=== PATIENT | female | born 1980 | race Two or more races ===

== ENCOUNTER 2021-05-02 10:35 | Emergency (ER) | payer OTHER, SELFPAY ==
[2021-05-02 10:57] VITALS: BP 118/86; PULSE 72; RESP 18; TEMP 36.9; O2SAT 100
[2021-05-02 11:33] LABS: Basophils Percent Auto 0.2 % (0.2-1.2); Eosinophils Absolute Auto 0.1 K/mm3 (0-0.3); Eosinophils Percent Auto 1.6 % (0-4.4); Immature Granulocyte Absolute 0.01 K/mm3 (0.00-0.031); Immature Granulocyte Percent A 0.2 % (0-0.5); Lymphocytes Absolute Auto 1.65 K/mm3 (0.9-3.2); Lymphocytes Percent Auto 33.8 % (18.3-44.2); Mean Corpuscular HGB Conc 35.1 g/dl (32-36); Mean Corpuscular Hemoglobin 31.1 pg (26-34); Mean Corpuscular Volume 88.5 fl (80-100); Mean Platelet Volume 10.2 fl (7.4-10.4); Monocytes Absolute Auto 0.3 K/mm3 (0.1-0.6); Monocytes Percent Auto 5.3 % (2.6-8.5); Neutrophils Absolute Auto 2.9 K/mm3 (1.3-6.7); Neutrophils Percent Auto 58.9 % (45.5-73.1); Platelet Count Result 259 k/mm3 (150-375); Red Blood Count 4.18 M/mm3 (4.2-5.4); Red Cell Distribution Width 11.9 % (11.5-14.5); White Blood Count 4.9 K/mm3 (4.5-10.0)
[2021-05-02 11:45] LABS: Alanine Aminotransferase 22 U/L (4-35); Albumin Level 4.7 g/dL (3.5-5.1); Alkaline Phosphatase 40 U/L (38-126); Anion Gap 10 mmol/L (8-16); Aspartate Amino Transferase 23 U/L (14-36); Bilirubin,Total 0.4 mg/dL (0.2-1.3); Blood Urea Nitrogen 8 mg/dL (7-17); Calcium 9.7 mg/dL (8.4-10.2); Carbon Dioxide 24 mmol/L (22-30); Chloride 107 mmol/L (98-107); Estimated CRCL calculation 117 ml/min; Estimated Glomerular Filt Rate > 60; Glucose 119 mg/dL (65-110); Potassium 3.9 mmol/L (3.4-5.0); Sodium 141 mmol/L (137-145)
--- NOTE | 2021-05-02 12:52 | ED.GENADULT ---
HPI - General Adult General Chief complaint: Vaginal Bleeding <Amelia Dykes PA-C - Last Filed: 05/02/21 13:00> Stated complaint: vaginal bleeding <Amelia Dykes PA-C - Last Filed: 05/02/21 13:00> Time Seen by Provider: 05/02/21 11:10 <Amelia Dykes PA-C - Last Filed: 05/02/21 13:00> Source: patient <Amelia Dykes PA-C - Last Filed: 05/02/21 13:00> Mode of arrival: ambulatory <Amelia Dykes PA-C - Last Filed: 05/02/21 13:00> History of Present Illness HPI narrative: Patient with hypothyroidism presents with chief complaint of vaginal bleeding intermittently since 03-24-21. Patient reports that she had some vaginal itching and burning a few weeks ago but that stopped a week ago. She denies any vaginal discharge. She denies concern for STDs. Patient states she presented to the emergency department because she missed her appointment with her [employer]ER and they will could not be seen until the . Patient is having light menstrual flow. Patient wants a pill to make the bleeding stop. She states she had this happen 10 years ago and it went away. <Amelia Dykes PA-C - Last Filed: 05/02/21 13:00> Related Data Home medications: Home Medications Medication Instructions Recorded Confirmed cholecalciferol (vitamin D3) 25 50 mcg PO DAILY cap 12/22/20 12/22/20 mcg (1,000 unit) capsule docusate sodium 100 mg capsule 100 mg PO BID cap 12/22/20 12/22/20 ferrous sulfate 325 mg (65 mg 325 mg PO DAILY tablet 12/22/20 12/22/20 iron) tablet levothyroxine 75 mcg tablet 75 mcg PO DAILY tablet 12/22/20 12/22/20 norethindrone 1 mg-ethinyl 1 tablet PO DAILY tablet 12/22/20 12/22/20 estradiol 20 mcg (21)-iron 75 mg (7) tablet <Amelia Dykes PA-C - Last Filed: 05/02/21 13:00> Allergies/adverse reactions: Allergies Allergy/AdvReac Type Severity Reaction Status Date / Time No Known Allergies Allergy Verified 02/02/21 10:51 <Amelia Dykes PA-C - Last Filed: 05/02/21 13:00> Review of Systems Review of Systems: CONSTITUTIONAL: Denies fever, chills, or sweats. EYES: Denies visual changes, redness, or discharge. ENT: Denies rhinorrhea, congestion, sore throat, or otalgia. CARDIOVASCULAR: Denies chest pain, palpitations, or edema. RESPIRATORY: Denies cough or dyspnea. GASTROINTESTINAL: Denies abdominal pain, nausea, vomiting, or diarrhea. GENITOURINARY: Reports vaginal bleeding denies dysuria or hematuria. SKIN: Denies rash or itching. MUSCULOSKELETAL: Denies back pain, joint pain, or myalgia. NEUROLOGIC: Denies headache, numbness, dizziness, or weakness. PSYCHIATRIC: Denies anxiety or depression. <Amelia Dykes PA-C - Last Filed: 05/02/21 13:00> PMFSH Past Medical History Medical History: Medical History Constipation Hypothyroidism (acquired) Iron deficiency Thyroid disorder Vitamin D deficiency <Amelia Dykes PA-C - Last Filed: 05/02/21 13:00> Surgical History Surgical History: Surgical History History of lumbosacral spine surgery due to trauma <Amelia Dykes PA-C - Last Filed: 05/02/21 13:00> Family History Family History: Family History Father Hypertension Mother Diabetes mellitus <YESSY Melendrez Last Filed: 05/02/21 13:00> Social History Social History: Social History Smoking status: Never smoker Alcohol intake: never Substance use: never Substance use type: does not use Gender identity (if verbalized by the patient): Female <Amelia Dykes PA-C - Last Filed: 05/02/21 13:00> Exam Narrative: GENERAL: Well-appearing, well-nourished, and in no acute distress. HEAD: Normocephalic, atraumatic. EYES: PERRLA and EOMI. NECK: Supple. Range of motion intact. CHEST: Clear to aus
[2021-05-02 13:07] LABS: Add Urine Microscopic? YES; Appearance Urine Clear (Clear); Bilirubin Urine Negative (Negative); Blood Urine 3+ (Negative); Color Urine Straw (Yellow); Glucose Urine UA Negative (Negative); Ketones Urine Negative (Negative); Leukocyte Esterase Ur Negative LEU/UL (Negative); Nitrate Urine Negative (Negative); Protein Urine Negative (Negative); RBC Urine >75 /hpf (0-2); Specific Grav Ur 1.006 (1.001-1.035); Urobilinogen Urine Negative mg/dL (<2.0); WBC Urine 0-3 /hpf
[2021-05-02 13:24] VITALS: BP 109/66; PULSE 91; RESP 18; O2SAT 99
== END 2021-05-02 13:27 | disposition home or self-care (01) ==
PROVIDERS: Physician Assistant; Emergency Provider General Practice; PCP Family Medicine
DX: N93.9 Abnormal uterine and vaginal bleeding, unspecified (principal); E03.9 Hypothyroidism, unspecified; E55.9 Vitamin D deficiency, unspecified; E61.1 Iron deficiency
CPT/HCPCS: 36415; 80053; 81001; 84443; 85025; 99284

== ENCOUNTER 2022-01-02 18:29 | Emergency (ER) | payer OTHER, SELFPAY ==
[2022-01-02] VITALS (24 sets, daily range): BP systolic 97–123; BP diastolic 63–82; PULSE 64–87; RESP 12–27; TEMP 36.6–36.7; O2SAT 98–100
[2022-01-02 20:49] LABS: Basophils Percent Auto 0.4 % (0.2-1.2); Eosinophils Absolute Auto 0.1 K/mm3 (0-0.3); Eosinophils Percent Auto 2.4 % (0-4.4); Hematocrit 27.9 % (37.0-47.0); Hemoglobin 8.8 g/dL (12.0-15.0); Immature Granulocyte Absolute 0.01 K/mm3 (0.00-0.031); Immature Granulocyte Percent A 0.2 % (0-0.5); Lymphocytes Absolute Auto 1.81 K/mm3 (0.9-3.2); Lymphocytes Percent Auto 40.3 % (18.3-44.2); Mean Corpuscular HGB Conc 31.5 g/dl (32-36); Mean Corpuscular Hemoglobin 27.6 pg (26-34); Mean Corpuscular Volume 87.5 fl (80-100); Mean Platelet Volume 10.8 fl (7.4-10.4); Monocytes Absolute Auto 0.3 K/mm3 (0.1-0.6); Monocytes Percent Auto 7.3 % (2.6-8.5); Neutrophils Absolute Auto 2.2 K/mm3 (1.3-6.7); Neutrophils Percent Auto 49.4 % (45.5-73.1); Platelet Count Result 307 k/mm3 (150-375); Red Blood Count 3.19 M/mm3 (4.2-5.4); Red Cell Distribution Width 12.3 % (11.5-14.5); White Blood Count 4.5 K/mm3 (4.5-10.0)
[2022-01-02 20:50] LABS: Anion Gap 5 mmol/L (8-16); Blood Urea Nitrogen 11 mg/dL (7-17); Calcium 8.3 mg/dL (8.4-10.2); Carbon Dioxide 26 mmol/L (22-30); Chloride 107 mmol/L (98-107); Estimated Glomerular Filt Rate > 60; Glucose 90 mg/dL (65-110); Potassium 3.7 mmol/L (3.4-5.0); Sodium 138 mmol/L (137-145)
[2022-01-02] MEDS: KETOROLAC 30 MG/ML VIAL (*BKC) IV PUSH (20:59)
[2022-01-02] MEDS: SODIUM CHLORIDE 0.9% IV 1,000 ML 999 ML IV CONT (20:59)
--- NOTE | 2022-01-02 21:39 | ED.GENADULT ---
HPI - General Adult General Chief complaint: Dizziness Stated complaint: dizzy/floaters/numbness Time Seen by Provider: 01/02/22 19:16 History of Present Illness HPI narrative: Patient is a 41-year-old female who presents ER with dizziness beginning 3 to 4 hours ago. Reports is worse with turning her head and associated with nausea. Makes her feel unsteady. She describes nonspecific tingling that is not lateralizing. No focal weakness in arm or leg. Reports she is got mild frontal headache related to this. Has had similar symptoms in the past, she reports it was related to anemia. No dark black stools or gross blood in in stool. She has history of heavy periods. No fevers or chills or sweats. She reports that she is not been on iron because she was told she did not need it anymore. Related Data Home Medications Medication Instructions Recorded Confirmed docusate sodium 100 mg capsule 100 mg PO BID 12/22/20 12/22/20 ferrous sulfate 325 mg (65 mg 325 mg PO DAILY 12/22/20 10/23/21 iron) tablet Allergies Allergy/AdvReac Type Severity Reaction Status Date / Time No Known Allergies Allergy Verified 10/30/21 09:52 Review of Systems Review of Systems: All systems reviewed & are unremarkable except as noted in HPI and below Constitutional: Constitutional: Denies chills, Reports fatigue and Denies fever(s) ENT: Reports dizziness, Denies nasal congestion and Denies sore throat Cardiovascular: Cardiovascular: Denies chest pain, Denies rapid heart rate and Denies radiating jaw, neck or arm pain Respiratory: Respiratory: Denies cough and Denies dyspnea Gastrointestinal: Gastrointestinal: Denies abdominal pain, Reports nausea and Denies vomiting Neurologic: Reports dizziness, Denies syncope, Reports headache(s), Denies focal weakness and Reports numbness PMFSH Past Medical History Medical History Constipation Hypothyroidism (acquired) Iron deficiency Thyroid disorder Vitamin D deficiency Surgical History Surgical History History of lumbosacral spine surgery due to trauma Family History Family History Father Hypertension Mother Diabetes mellitus Social History Social History (Updated 10/30/21 @ 09:54 by Mily Lucero [facility]) Smoking status: Never smoker Alcohol intake: current Alcohol use details: social Substance use: never Substance use type: does not use Additional living arrangements comments: Gender identity (if verbalized by the patient): Female Sexual Orientation (if Verbalized by the Patient): Straight or Heterosexual Exam Narrative: GENERAL: Well-appearing, well-nourished, and in no acute distress. HEAD: Normocephalic, atraumatic. EYES: PERRL and EOMI. ENT: Mucous membranes moist. Right ear cerumen impaction, after debris removed TM normal in appearance. Normal left TM. CHEST: Clear to auscultation. No respiratory distress. HEART: Regular rate and rhythm. Normal peripheral pulses. ABDOMEN: Soft, nontender, nondistended. EXTREMITIES: Normal range of motion. No edema. SKIN: Warm, dry, no rash. NEURO: No focal deficits. Normal [id number] testing. No upper or lower extremity drift. Alert and oriented x3. PSYCH: Normal mood and affect. Course Course Emergency Course: Symptoms resolved after ear irrigation removing earwax. Patient has been hydrated also received meclizine and Toradol. No headache or dizziness. Discussed anemia and recommend restarting iron. Patient verbalized understanding. Vital Signs Vital signs: Vital Signs Temperature 97.9 F 01/02/22 19:10 Pulse Rate 80 01/02/22 19:10 Respiratory Rate 16 01/02/22 19:10 Blood Pressure 118/76 01/02/22 19:10 Pulse Oximetry 100 01/02/22 19:10 Temperature 98.0 F 01/02/22 19:16 Pulse Rate 70 01/02/22 19:16
[2022-01-02] MEDS: MECLIZINE HCL 25 MG TABLET PO (22:06)
== END 2022-01-02 22:14 | disposition home or self-care (01) ==
PROVIDERS: Emergency Provider Emergency Medicine; PCP Family Medicine
DX: R42 Dizziness and giddiness (principal); H61.21 Impacted cerumen, right ear; D64.9 Anemia, unspecified; E03.9 Hypothyroidism, unspecified; E55.9 Vitamin D deficiency, unspecified; E61.1 Iron deficiency
CPT/HCPCS: 36415; 69209; 80048; 85025; 96361; 96374; 99284; A9270; J1885; J7030

== ENCOUNTER 2022-03-28 06:51 | Outpatient (RCR) | payer SELFPAY | END 2022-06-11 09:55 | disposition home or self-care (01) | LOC: ANHDMC 06:51 | PROVIDERS: PCP Family Medicine; Visit Provider Nurse Practitioner Family | DX: R63.5 Abnormal weight gain (principal) | CPT/HCPCS: 99199 ==

== ENCOUNTER 2022-03-30 16:13 | Outpatient (CLI) | payer OTHER, SELFPAY ==
[2022-03-30 18:37] LABS: Hematocrit 38.9 % (37.0-47.0); Hemoglobin 12.9 g/dL (12.0-15.0); Mean Corpuscular HGB Conc 33.2 g/dl (32-36); Mean Corpuscular Hemoglobin 28.9 pg (26-34); Mean Platelet Volume 11.1 fl (7.4-10.4); Platelet Count Result 275 k/mm3 (150-375); Red Blood Count 4.47 M/mm3 (4.2-5.4); Red Cell Distribution Width 14.2 % (11.5-14.5); White Blood Count 5.7 K/mm3 (4.5-10.0)
== END 2022-03-30 16:14 | disposition home or self-care (01) ==
LOC: ANHGOSHLAB 16:15
PROVIDERS: PCP Family Medicine; Visit Provider Nurse Practitioner Family
DX: D50.9 Iron deficiency anemia, unspecified (principal)
CPT/HCPCS: 36415; 82728; 85027

== ENCOUNTER 2022-09-10 13:19 | Outpatient (CLI) | payer OTHER, SELFPAY ==
--- NOTE | ~2022-09-10 | US_ITS ---
US breast LT limited DATE: 09/10/2022 13:41 INDICATION: Left breast lump at 1:00 TECHNIQUE: Real-time and color flow imaging targeted at area of clinical complaint of left breast lum p at 1:00 5 cm from nipple COMPARISON: None FINDINGS: 1:00 5 cm from nipple: Parallel circumscribed sonolucency measuring 3.7 x 2.6 x 4.9 mm, wit hout internal vascularity or posterior shadowing, consistent with simple cyst or other benign process . No sonographic suspicious mass or shadowing is detected in this area. IMPRESSION: BI-RADS Category 2: Benign Recommendation: Consider diagnostic mammography, which may show abnormalities that are not detectable by ultrasound Reviewed, dictated and finalized at [facility]. Reviewed, dictated and finalized at location A. H CHEMIST IMPRESSION: BI-RADS Category 2: Benign Recommendation: Consider diagnostic mammography, which may show abnormalities t hat are not detectable by ultrasound
== END 2022-09-10 13:20 | disposition home or self-care (01) ==
PROVIDERS: PCP Family Medicine; Visit Provider Nurse Practitioner
DX: N63.0 Unspecified lump in unspecified breast (principal)
CPT/HCPCS: 76642

== ENCOUNTER 2022-10-03 13:50 | Outpatient (CLI) | payer OTHER, SELFPAY ==
[2022-10-03 19:23] LABS: Basophils Percent Auto 0.4 % (0.2-1.2); Eosinophils Absolute Auto 0.1 K/mm3 (0-0.3); Eosinophils Percent Auto 1.9 % (0-4.4); Hematocrit 36.9 % (37.0-47.0); Hemoglobin 12.5 g/dL (12.0-15.0); Immature Granulocyte Absolute 0.01 K/mm3 (0.00-0.031); Immature Granulocyte Percent A 0.2 % (0-0.5); Lymphocytes Absolute Auto 1.67 K/mm3 (0.9-3.2); Lymphocytes Percent Auto 35.3 % (18.3-44.2); Mean Corpuscular HGB Conc 33.9 g/dl (32-36); Mean Corpuscular Hemoglobin 30.9 pg (26-34); Mean Corpuscular Volume 91.3 fl (80-100); Mean Platelet Volume 11.6 fl (7.4-10.4); Monocytes Absolute Auto 0.3 K/mm3 (0.1-0.6); Monocytes Percent Auto 6.1 % (2.6-8.5); Neutrophils Absolute Auto 2.7 K/mm3 (1.3-6.7); Neutrophils Percent Auto 56.1 % (45.5-73.1); Platelet Count Result 261 k/mm3 (150-375); Red Blood Count 4.04 M/mm3 (4.2-5.4); Red Cell Distribution Width 12.2 % (11.5-14.5); White Blood Count 4.7 K/mm3 (4.5-10.0)
[2022-10-03 19:55] LABS: Iron 95 ug/dL (37-170)
[2022-10-03 20:07] LABS: Percent Iron Saturation 26 % (20-50)
[2022-10-03 20:33] LABS: Alanine Aminotransferase 24 U/L (6-35); Albumin Level 4.2 g/dL (3.5-5.1); Alkaline Phosphatase 45 U/L (38-126); Anion Gap 5 mmol/L (8-16); Aspartate Amino Transferase 37 U/L (14-36); Bilirubin,Total 0.4 mg/dL (0.2-1.3); Blood Urea Nitrogen 8 mg/dL (7-17); Calcium 8.8 mg/dL (8.4-10.2); Carbon Dioxide 28 mmol/L (22-30); Chloride 106 mmol/L (98-107); Estimated Glomerular Filt Rate > 60; Glucose 81 mg/dL (65-110); Potassium 3.9 mmol/L (3.4-5.0); Sodium 139 mmol/L (137-145)
== END 2022-10-03 13:51 | disposition home or self-care (01) ==
LOC: ANHGOSHLAB 13:52
PROVIDERS: PCP Family Medicine; Visit Provider Family Medicine
DX: D50.9 Iron deficiency anemia, unspecified (principal); E03.9 Hypothyroidism, unspecified; K59.00 Constipation, unspecified
CPT/HCPCS: 36415; 80053; 82728; 83540; 83550; 84443; 85025

== ENCOUNTER 2022-10-15 11:31 | Outpatient (CLI) | payer OTHER, SELFPAY ==
--- NOTE | ~2022-10-15 | MMUS_ITS ---
EXAMINATION: MM diagnostic angei BI w luis, US breast BI complete HISTORY: Palpable breast lump. TECHNIQUE: Additional 3-D tomosynthesis images of the breasts were performed and synthetic 2-D images were generated. CAD analysis was submitted and interpreted. High resolution complete bilateral breas t ultrasound was performed. COMPARISON: None BREAST PARENCHYMAL COMPOSITION: The breasts are heterogeneously dense, which may obscure small masses FINDINGS: MAMMOGRAPHIC FINDINGS: There are no suspicious masses, calcifications or architectural distortion in either breast to sugges t malignancy. ULTRASOUND: Complete bilateral US of all 4 quadrants of the breasts and retroareolar region was reviewed. Right breast: No suspicious solid or cystic masses are identified in the right breast. Left breast ultrasound: At 3:00 near the nipple there is an oval circumscribed hypoechoic mass with i nternal cystic change measuring 1.7 x 1.4 x 0.7 cm. No significant posterior attenuation or internal vascularity. Parallel orientation. IMPRESSION: 1. Complex partially cystic left breast mass at 3:00 near the nipple measuring 1.7 cm. 2. Ultrasound-guided left breast biopsy recommended. BI-RADS category 4, suspicious findings. Reviewed, dictated and finalized at location A. IMPRESSION: 1. Complex partially cystic left breast mass at 3:00 near the nipple measuring 1.7 cm. 2. Ultrasound-guided left breast biopsy recommended. BI-RADS category 4, suspicious findings.
== END 2022-10-15 11:32 | disposition home or self-care (01) ==
LOC: ANHIMG 11:32
PROVIDERS: PCP Family Medicine; Visit Provider Nurse Practitioner
DX: N60.02 Solitary cyst of left breast (principal)
CPT/HCPCS: 76641; 77062; 77066; G0279

== ENCOUNTER 2022-10-24 14:40 | Outpatient (CLI) | payer OTHER, SELFPAY ==
--- NOTE | ~2022-10-24 | XR_ITS ---
EXAMINATION: XR chest 2V Exam Date/Time: 10/24/2022 14:50 CDT HISTORY: R05.3 - Chronic cough Comparison: None available. RESULT: Lines, tubes, and devices: Partially visualized thoracolumbar fusion hardware. A pedicle screw is fr actured. Lungs and pleura: Mild diffuse reticulonodular opacities and cuffing. Cardiomediastinal silhouette: Stable. Other: No acute osseous or upper abdominal finding. IMPRESSION: Thoracolumbar fusion hardware with fractured superior pedicle screw. Pulmonary opacities may represen t mild bronchiolitis, as can be seen with atypical infection, asthma, aspiration, and small airways d isease Reviewed, dictated and finalized at location K. IMPRESSION: Thoracolumbar fusion hardware with fractured superior pedicle screw. Pulmonary opacities may represent mild bronchiolitis, as can be seen with atypical infect ion, asthma, aspiration, and small airways disease
== END 2022-10-24 14:41 | disposition home or self-care (01) ==
PROVIDERS: PCP Family Medicine; Visit Provider Family Medicine
DX: R05.3 Chronic cough (principal); Z98.1 Arthrodesis status
CPT/HCPCS: 71046

== ENCOUNTER 2022-11-08 09:16 | Outpatient (CLI) | payer OTHER, SELFPAY ==
--- NOTE | ~2022-11-08 | MMUS_ITS ---
EXAMINATION: US breast biopsy LT w image, MM post biopsy invasive LT DATE: 11/08/2022 10:43 (accession [id number]), 11/08/2022 10:36 (accession [id number]) INDICATION: Indeterminate mass at the 3:00 location of the left breast Ultrasound-guided core biopsy is requested to evaluate for malignancy. TECHNIQUE AND FINDINGS: The risks and potential benefits of the procedure were discussed with the patient including bleeding and infection. A time out was performed. The skin of the left breast was prepared and draped in usual sterile fashion. 1% lidocaine was used for superficial anesthesia. 1% lidocaine with epinephrine was used for deep anesthesia. A vacuum-assisted biopsy needle was advanced through to the outer edge of the region of interest from an inferolateral approach utilizing sonographic guidance. A total of five tissue core samples were o btained through the lesion. A tissue marker clip was then placed at the biopsy site. Hemostasis was a chieved. A sterile bandage was applied. The patient tolerated procedure well and there was no evidence of immediate complication. The patient was given verbal instructions to return to the Emergency Department in the event of severe breast pa in or rapid breast enlargement. A two view left breast mammogram was obtained to document tissue jr er clip placement. IMPRESSION: 1. Successful ultrasound-guided vacuum-assisted biopsy of left breast mass with tissue marker placeme nt. Reviewed, dictated and finalized at location A. IMPRESSION: 1. Successful ultrasound-guided vacuum-assisted biopsy of left breast mass with tissue marker placement.
== END 2022-11-08 09:17 | disposition home or self-care (01) ==
PROVIDERS: PCP Family Medicine; Visit Provider Nurse Practitioner
DX: N63.20 Unspecified lump in the left breast, unspecified quadrant (principal)
CPT/HCPCS: 19083; 88305; A4648

== ENCOUNTER 2023-07-26 10:46 | Outpatient (CLI) | payer OTHER, SELFPAY ==
--- NOTE | ~2023-07-26 | XR_ITS ---
EXAMINATION: XR thoracolumbar DATE: 07/26/2023 11:23 INDICATION: Dorsalgia. TECHNIQUE: 3 views of the thoracolumbar spine including flexion and extension standing views were obt ained. COMPARISON: Chest 2 views 10/24/2022 FINDINGS: There is 6 degrees levocurvature of thoracolumbar spine. There is a compression fracture of L1 with 2/5 loss of height. There are changes of posterior fusion procedure from T12 to L2 with pedi sarah screws in T12, L2, and L3. The right T12 screw is broken. There is no abnormal motion with flexio n or extension. There is mildly decreased disc height at T12-L1. There is multilevel mild facet joint osteoarthritis. IMPRESSION: 1. Posterior fusion procedure from T12 to L2 with chronic fracture of the right T12 screw. 2. Mild lumbar spondylosis. Reviewed, dictated and finalized at location E. NDED D[employer] DENTAL ASSISTANT
== END 2023-07-26 10:47 | disposition home or self-care (01) ==
PROVIDERS: PCP Family Medicine; Visit Provider Physician Assistant
DX: M43.06 Spondylolysis, lumbar region (principal); M43.26 Fusion of spine, lumbar region; T84.296A Other mechanical complication of internal fixation device of vertebrae, initial encounter; Y82.8 Other medical devices associated with adverse incidents
CPT/HCPCS: 72080

== ENCOUNTER 2023-08-25 15:14 | Emergency (ER) | payer OTHER, SELFPAY ==
[2023-08-25 15:18] VITALS: BP 115/78; PULSE 123; RESP 20; TEMP 36.9; O2SAT 100
--- NOTE | 2023-08-25 15:26 | PC.NURSE ---
Upon arrival to manager of product, pt presented RN with disharge papers from [facility] with diagnosis of strep throat, RX for Augmentin & Lidocaine gel. Pt states she is not feeling any better since visit to [facility]. RN noticed time pt was discharged was 1214. RN ask if pt has started her RX pt replied no, I'm not feeling any better. RN educated pt on benefits of starting antibiotics.
--- NOTE | 2023-08-25 15:43 | ED.URI ---
HPI - URI/Sore Throat General Chief Complaint: Upper Respiratory Infection Stated Complaint: strep throat Time Seen by Provider: 08/25/23 15:42 Source: patient Mode of arrival: ambulatory Limitations: no limitations History of Present Illness HPI Narrative: Jaleel is a 42-year-old female patient presenting to the ER today with complaints of sore throat, nausea, vomiting x2 days. States that she went to [facility] urgent care and was diagnosed with strep pharyngitis and sent in prescription for amoxicillin to [facility]'s pharmacy. She reports that the pharmacy is closed today and is unable to get her medications. Instead of contacting [facility] urgent care and having her prescription changed to another pharmacy she came to the ER because she states she is not feeling any better. MD elicited complaint: sore throat Related Data Allergies Allergy/AdvReac Type Severity Reaction Status Date / Time No Known Allergies Allergy Verified 08/25/23 15:15 Review of Systems Review of Systems: Pertinent positives per HPI. Patient denies any fever, chills, rash, headache, visual changes, dizziness, cough, shortness of breath, chest pain, palpitations, nausea, vomiting, diarrhea, constipation, abdominal pain, or any urinary issues. [facility] Past Medical History Medical History Constipation Flexural eczema Hypothyroidism (acquired) Insomnia Iron deficiency anemia Irregular periods Thyroid disorder Vitamin D deficiency Surgical History Surgical History History of lumbosacral spine surgery (~2010) due to trauma Family History Family History Father Hypertension Mother Diabetes mellitus Social History Social History Social History: Caffeine-daily Smoking status: Never smoker Alcohol intake: former Alcohol use details: social Substance use: never Substance use type: does not use Do You Feel Safe in your Home?: Yes Lack of Transportation: No Lack of Food: Never True Current Housing: I Have Housing Concerned About Future Housing: No Difficulty Paying Gas/Electric Bills: YES Difficulty Paying for Meds: No Currently Unemployed: YES Education: Associate Degree Difficulty w/ Childcare or Family Care: No Living arrangements: other Additional living arrangements comments: Occupation/Education: occupation 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 There is no relevant family history pertinent to the patient complaint. Exam Narrative: General: Well-developed, well nourished, in no apparent distress Head: Normocephalic, atraumatic Eyes: Pupils equally round and reactive to light bilaterally, EOM intact, sclera and conjunctive clear, no discharge, lids normal Ears: TMs intact and clear, ear canals clear, no drainage, grossly hearing normal. Nose: Nares patent, clear nasal discharge, no inflammation, no sinus tenderness. Mouth: Oral pharynx without lesions or masses, good dentition, MMM. Neck: Supple, trachea midline, no enlargement of anterior or posterior cervical nodes, no thyroid masses or goiter palpable. Cardio: Regular rate and rhythm, s1 and s2 normal, no murmur appreciated. Resp: Clear to auscultation bilaterally, no rhonchi, rales, wheezing or rubs Course Course Emergency Course: Portions of this record may have been created with voice recognition software. Vital Signs Vital signs: Vital Signs Temperature 36.9 C 08/25/23 15:18 Pulse Rate 123 H 08/25/23 15:18 R
[2023-08-25 16:40] LABS: Strep Group A RT-PCR DETECTED (Negative)
== END 2023-08-25 17:06 | disposition home or self-care (01) ==
LOC: ANHED 16:59
PROVIDERS: Emergency Provider Nurse Practitioner Family; PCP Family Medicine
DX: J02.0 Streptococcal pharyngitis (principal); E03.9 Hypothyroidism, unspecified
CPT/HCPCS: 87651; 99283

== ENCOUNTER 2023-11-06 11:37 | Outpatient (CLI) | payer OTHER, SELFPAY ==
--- NOTE | ~2023-11-06 | XR_ITS ---
EXAM: XR thoracic spine 3V DATE: 11/06/2023 12:21 HISTORY: M54.2 -PAIN MID BACK, NO NEW INJ, HX FALL REQ SURG 2010 . COMPARISON: 07/26/2023. FINDINGS: Mild scoliosis. The superior portion of lumbar fusion hardware is present at the inferior i mage starting at T12. Fractured right T12 pedicle screw, a chronic stable finding. Vertebral body ali gnment intact. Vertebral body heights preserved. Mild multilevel disc space narrowing and marginal os teophytosis. No traumatic malalignment or fracture. Visualized lung parenchyma is clear. IMPRESSION: Mild multilevel degenerative disc disease. Mild scoliosis. Reviewed, dictated and finalized at location K.
--- NOTE | ~2023-11-06 | XR_ITS ---
EXAM: XR lumbar spine 2-3V DATE: 11/06/2023 12:22 HISTORY: M54.2 -PAIN MID BACK, NO NEW INJ, HX FALL REQ SURG 2010 . COMPARISON: 07/26/2023. FINDINGS: 5 nonrib-bearing lumbar-type vertebral bodies. Exaggerated lumbar lordosis. Mild spinal as ymmetry. Posterior lumbar fusion spanning T12-L3. Fractured right T12 pedicle screw, a chronic stable finding. Grade 1 retrolisthesis at L1-2, stable. Stable moderate compression deformity at L1. Mild d isc space narrowing at T12-L1. Mild lower lumbar facet hypertrophy and sclerosis. IMPRESSION: Stable moderate L1 compression deformity. Stable right T12 pedicle screw fracture. Mild d egenerative disc disease at T12-L1. Mild lower lumbar facet arthropathy. Reviewed, dictated and finalized at location K. IMPRESSION: Stable moderate L1 compression deformity. Stable right T12 pedicle screw fracture. Mild degenerative disc disease at T12-L1. Mild lower lumbar fac et arthropathy.
--- NOTE | ~2023-11-06 | XR_ITS ---
EXAM: XR_CERV2-3V_CR DATE: 11/06/2023 12:22 HISTORY: M54.2 -PAIN MID BACK, NO NEW INJ, HX FALL REQ SURG 2010 . COMPARISON: None available. FINDINGS: Craniocervical association and atlantoaxial joint are aligned. No prevertebral soft tissue swelling. Reversed lordosis centered at C4-5. Trace anterolisthesis at C4-5. Trace retrolisthesis at C6-7. Vertebral body heights are maintained. Mild disc space narrowing and marginal osteophytosis at C6-7. Mild facet narrowing and sclerosis at C6-7 and C7-T1. IMPRESSION: Multilevel minimal grade 1 listheses. Mild degenerative disc disease at C6-7. Mild lower cervical spine facet arthropathy. Reviewed, dictated and finalized at location K. IMPRESSION: Multilevel minimal grade 1 listheses. Mild degenerative disc diseas e at C6-7. Mild lower cervical spine facet arthropathy.
== END 2023-11-06 11:38 | disposition home or self-care (01) ==
PROVIDERS: PCP Family Medicine; Visit Provider Family Medicine
DX: M51.35 Other intervertebral disc degeneration, thoracolumbar region (principal); M47.896 Other spondylosis, lumbar region; M51.34 Other intervertebral disc degeneration, thoracic region; M41.84 Other forms of scoliosis, thoracic region; M43.12 Spondylolisthesis, cervical region; M50.323 Other cervical disc degeneration at C6-C7 level; M47.892 Other spondylosis, cervical region
CPT/HCPCS: 72040; 72072; 72100

== ENCOUNTER 2023-11-13 11:54 | Outpatient (CLI) | payer OTHER, SELFPAY ==
--- NOTE | ~2023-11-13 | CT_ITS ---
EXAMINATION: CT thoracic lumbar wo con DATE: 11/13/2023 12:33 INDICATION: Dorsalgia. TECHNIQUE: Computed tomography (CT) of the thoracic and lumbar spine was performed without intravenou s contrast. Automated exposure control and iterative reconstruction technique were employed. The dose -length product was 718.17 mGy-cm. COMPARISON: Thoracic and lumbar spine radiographs 11/06/2023 FINDINGS: CT THORACIC SPINE: There is 5 degrees dextrocurvature of lower thoracic spine. Vertebral body heights are normal. Intervertebral disc heights are normal. There is multilevel facet joint osteoarthritis, severe at many levels in upper thoracic spine. On the right, there is mild neural foraminal stenosis at T3-T4 and T5-T6. On the left, there is mild neural foraminal stenosis at T2-T3, T3-T4, and T5-T6. No central canal stenosis. CT LUMBAR SPINE: There is 12 degrees levoscoliosis of thoracolumbar spine. There is a chronic burst f racture of L1 with 3/5 loss of height and retropulsion of bone 4 mm into central spinal canal. There are changes of posterior fusion procedure from T12 to L3 with pedicle screws in T12, L2, and L3. The right T12 screw is broken. There is mildly decreased disc height at T12-L1. The following disc levels are specifically discussed: T12-L1: The disc does not extend beyond the endplate margin. There is mild bilateral facet joint hype rtrophy. There is no neural foraminal stenosis. There is mild central canal stenosis. L1-L2: The disc does not extend beyond the endplate margin. There is no facet joint hypertrophy. Ther e is no neural foraminal stenosis. There is mild central canal stenosis. L2-L3: The disc does not extend beyond the endplate margin. There is mild bilateral facet joint hyper trophy. There is no neural foraminal stenosis. There is no central canal stenosis. L3-L4: The disc does not extend beyond the endplate margin. There is moderate bilateral facet joint o steoarthritis. There is no neural foraminal stenosis. There is no central canal stenosis. L4-L5: The disc is bulging. There is moderate right and mild left facet joint osteoarthritis. There i s mild right neural foraminal stenosis. There is mild central canal stenosis. L5-S1: The disc is bulging. There is severe bilateral facet joint osteoarthritis. There is mild bilat eral neural foraminal stenosis. There is mild central canal stenosis. IMPRESSION: 1. Posterior fusion procedure from T12 to L3 with fracture of the right T12 screw. 2. Thoracolumbar levoscoliosis. 3. Mild thoracic and lumbar spondylosis. Reviewed, dictated and finalized at location E. IMPRESSION: 1. Posterior fusion procedure from T12 to L3 with fracture of the right T12 scr ew. 2. Thoracolumbar levoscoliosis. 3. Mild thoracic and lumbar spondylosis.
== END 2023-11-13 11:55 | disposition home or self-care (01) ==
LOC: ANHIMG 11:56
PROVIDERS: PCP Family Medicine; Visit Provider Physician Assistant
DX: M41.85 Other forms of scoliosis, thoracolumbar region (principal); M43.04 Spondylolysis, thoracic region; M43.06 Spondylolysis, lumbar region; Z98.1 Arthrodesis status
CPT/HCPCS: 72128; 72131

== ENCOUNTER 2024-04-21 09:26 | Day surgery (SDC) | payer OTHER, SELFPAY ==
[2024-04-07 11:50] VITALS: BMI 28.4
--- NOTE | ~2024-04-21 | XR_ITS ---
EXAMINATION: XR fluoroscopy no charge DATE: 04/21/2024 10:10 CDT INDICATION: SISI L2,L3,L4 BLOCK . TECHNIQUE: 12 fluoroscopic images and 3 cine clips of the lumbar spine were obtained during bilateral L2, L3, and L4 nerve block, performed by Newton Villela MD. I was not present during the procedure . Fluoroscopy exposure time was 25.4 seconds. Air Kerma 5.68 mGy. COMPARISON: None FINDINGS/IMPRESSION: Fluoroscopic documentation of bilateral L2, L3, and L4 nerve block. Please refer to the operative not e for complete procedural details . Reviewed, dictated and finalized at location K.
--- NOTE | 2024-04-21 05:49 | PM.HPGS ---
History of Present Illness History of Present Illness Consent: Risks, benefits, and alternatives have been discussed and questions answered. Patient agrees to proceed with procedure. Chief complaint: Lumbosacral Spondylosis, chronic low back pain Narrative: Jaleel Parsons is a 43 year old female with chronic, recalcitrant and disabling bilateral lumbosacral back pain secondary to degenerative spondylosis and post laminectomy syndrome, with failure to respond to aggressive conservative measures including PT, oral and topical analgesics, opioid and nonopioid analgesics, rest, time and activity/behavioral modification over the past 1-2 years who presents for diagnostic/prognostic medial branch blocks(#1) at L2, L3, L4 to address bilateral L3-4, L4-5 facet joints under fluoroscopic guidance and with contrast control. Review of Systems Review of Systems: Patient denies any new infectious, allergic, cardiopulmonary, neurologic or constitutional symptoms or changes in activity tolerance or exercise capacity including new or progressive SOB/SIMPSON, peripheral edema, productive cough, dysuria, nausea/vomiting, diarrhea, weight change, fevers/chills/night sweats, new or progressive neurologic deficit, cognitive or mood changes since last seen, except as documented in the HPI. All systems reviewed & are unremarkable except as noted in HPI and below PMFSH Past Medical History Medical History Constipation Flexural eczema Hypothyroidism (acquired) Insomnia Iron deficiency anemia Irregular periods Thyroid disorder Vitamin D deficiency Surgical History Surgical History History of lumbosacral spine surgery (~2010) due to trauma Family History Family History Father Hypertension Mother Diabetes mellitus Social History Social History (Updated 03/17/24 @ 15:14 by Yuli Lau) Social History: Caffeine-daily Smoking status: Never smoker Alcohol intake: current Alcohol use details: occassional/socially Substance use: never Substance use type: does not use Do You Feel Safe in your Home?: Yes Lack of Transportation: No Lack of Food: Never True Current Housing: Decline to Answer Concerned About Future Housing: Decline to Answer Difficulty Paying Gas/Electric Bills: Decline to Answer Difficulty Paying for Meds: Decline to Answer Currently Unemployed: Decline to Answer Education: Decline to Answer Difficulty w/ Childcare or Family Care: Decline to Answer Living arrangements: with family Additional living arrangements comments: Occupation/Education: occupation 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 Gender identity (if verbalized by the patient): Female Sexual Orientation (if Verbalized by the Patient): Straight or Heterosexual Spiritual care concerns: No Meds Home Medications and Allergies Home Medications Medication Instructions Recorded Confirmed Type docusate sodium 100 mg capsule 100 mg PO BID #60 caps 08/20/22 04/07/24 Rx levothyroxine 75 mcg tablet 75 mcg PO DAILY #90 tabs 08/30/22 04/07/24 Rx naproxen 500 mg tablet 500 mg PO BID PRN pain #60 tabs 11/19/22 04/07/24 Rx trazodone 50 mg tablet 75 mg PO QHS PRN insomnia #45 tabs 11/19/22 04/07/24 Rx fluticasone 250 mcg-salmeterol 50 1 inh inhalation BID 04/07/24 04/07/24 History mcg/dose blistr powdr for inhalation (Advair Diskus) Allergies Allergy/AdvReac Type Severity Reaction Status Date / Time No Known Allergies Allergy Verified 04/07/24 11:51 Exam Narrative: The patient's physical exam is essentially unchanged from prior examination on 03/17/2024. Specifically, patient demonstrates normal lung capacity, tidal volume and respiratory rate without wheezes, crackles, rales or rubs. Heart rate and rhythm
--- NOTE | 2024-04-21 05:53 | WPDHPUPDATE1 ---
History and Physical Update Update Date/Time: 04/21/24 05:53 History and Physical has been reviewed, including an updated exam of the patient. There are NO changes in the patient's condition. Risks, benefits, and alternatives have been discussed and questions answered. Patient agrees to proceed with procedure.
--- NOTE | 2024-04-21 05:53 | W.PM.PROC2 ---
Procedure Note - Detailed Date of Procedure 04/21/24 Pre-op Diagnosis Lumbosacral Spondylosis, chronic low back pain Post-op Diagnosis Same Procedure Performed Diagnostic Bilateral Lumbar Medial Branch Blocks at L2, L3, L4 Treating the bilateral L3-4, L4-5 Facet Joints Under Fluoroscopic Guidance and with Contrast Control. ( 4 levels blocked). Surgeon Newton Villela MD Director Of Orthopedics None. Anesthesia Local Description of Procedure INFORMED CONSENT: Risks, benefits and alternatives to the procedure were discussed in detail with the patient who expressed explicit understanding and consent to proceed. Patient was informed verbally and in written form regarding the risks associated with the procedure including the low risk of serious infection, bleeding/bruising, allergic reaction, nerve or organ injury, paralysis, procedural site pain or discomfort, worsening pain and/or mobility, failure to treat and/or disfigurement. The patient expressed explicit understanding and consent to proceed. All materials required for the procedure were available prior to procedure start. Site and side were marked prior to procedure and confirmed in the presence of the patient. PROCEDURE IN DETAIL: The patient was brought to the procedural suite and placed in the prone position. Patient was made comfortable with use of pillows under the head/chest, hips and ankles. Skin overlying the injection site on the affected side(s) was prepared broadly with ChloraPrep applicator and draped in a sterile manner. Aseptic technique was used throughout. The endplates of the vertebral bodies at the site(s) of interest were aligned in the AP view. Ipsilateral oblique angulation was utilized to optimize visualization of the intersection between the superior articulating process and transverse process at each target site. Local anesthesia was established by infiltration with approximately 5 mL of 1% lidocaine via a 1-1/2 inch 27-gauge needle. A 25-gauge 3.5 inch Quincke spinal needle was advanced until the needle tip contacted periosteum at the target site, right L2. Lateral view was utilized to confirm the appropriate placement of the needle tip just anterior to the facet line and superior to the pedicle. In the Lateral view, 0.25 mL of Omnipaque 300 contrast medium was injected after negative aspiration for CSF, blood or other bodily fluid, showing appropriate extra-articular spread of contrast without evidence of intravascular, foraminal or intrathecal placement. A 0.5 mL solution of 0.5% PF bupivacaine was injected after negative repeat aspiration. Appropriate spread of the injectate was confirmed with washout of previously injected contrast. No parasthesias were elicited. Needle was removed completely intact without difficulty. The same exact procedure was repeated for all remaining levels on the ipsilateral side, right L3, L4 medial branches, modified as necessary to accommodate for the new target location with identical findings and results and no evidence of complication. The same exact procedure was repeated for all remaining levels on the contralateral side, left L2, L3, L4 medial branches, modified as necessary to accommodate for the new target location with identical findings and results and no evidence of complication. Images were saved and documented in the patient chart. Patient's skin was cleaned and sterile bandage applied. The patient tolerated the procedure well. The patient was transported to the recovery area in stable condition where they were observed for an appropriate amount of time prior to discharge, without evidence of complication. Patient was instructed on the appropriate completion of a pain diary over the next 12-24 hours. The patient was instructed to avoid excessive activity for the next 48 hours, including climbing and frequent use of stairs. Showers only for 48 hours. They were instructed not to drive or operate heavy machinery for 24 hours. They are to monitor for se
[2024-04-21 09:54] VITALS: BP 110/73; PULSE 65; RESP 16; TEMP 36.9; O2SAT 100; BMI 29.3
[2024-04-21 10:15] VITALS: BP 114/55; PULSE 58; RESP 16; O2SAT 100
[2024-04-21 10:20] VITALS: BP 118/58; PULSE 57; RESP 12; O2SAT 100
[2024-04-21] MEDS: LIDOCAINE HCL 1% PF INJ 5 ML VIAL 3 ML INFILTRATE (10:29)
[2024-04-21] MEDS: BUPivacaine HCL 0.5% 10 ML AMP 5 ML INFILTRATE (10:30)
[2024-04-21 10:33] VITALS: BP 108/76; PULSE 52; RESP 15; O2SAT 100
== END 2024-04-21 10:45 | disposition home or self-care (01) ==
PROVIDERS: PCP Family Medicine; Visit Provider Anesthesiology Pain Medicine
PROC: (CPT 64493; principal; 2024-04-21 10:00)
DX: M47.817 Spondylosis without myelopathy or radiculopathy, lumbosacral region (principal); M54.59 Other low back pain
CPT/HCPCS: 64493 ×2; 64494 ×2; 99199